=== PATIENT | female | born 1990 | race Caucasian/White ===

== ENCOUNTER 2019-08-09 13:16 | Emergency (ER) | payer MEDICAID ==
[~2019-08-09] VITALS: Ht 162.6 cm; Wt 123.8 kg
[2019-08-09 13:31] VITALS: Ht 162.6 cm; Wt 123.8 kg
[2019-08-09 14:08] LABS: BASOPHIL % 0.3 % (0-2); PLATELET COUNT 204 x10^3mcL (130-400)
[2019-08-09 14:13] LABS: UA SPECIFIC GRAVITY 1.025 (1.005-1.035); microscopic required? YES; urine erythrocyte 3+ (NEGATIVE)
[2019-08-09 14:40] LABS: CALCIUM 8.8 mg/dL (8.5-10.1); CARBON DIOXIDE 27.1 mmol/L (21-32); CHLORIDE SERUM 100 mmol/L (98-107); CREATININE SERUM 0.9 mg/dL (0.6-1.0); GFR1 > 60 mL/min; GLUCOSE SERUM 113 mg/dL (74-106); POTASSIUM SERUM 3.9 mmol/L (3.5-5.1); SODIUM SERUM 136 mmol/L (136-145)
[2019-08-09 14:56] LABS: ALKALINE PHOSPHATASE 54 U/L (46-116); ALT/SGPT 41 U/L (14-59); AST/SGOT 27 U/L (15-37); BILIRUBIN TOTAL 0.3 mg/dL (0.20-1.00)
[2019-08-09 14:57] LABS: TOTAL PROTEIN, SERUM 8.5 g/dL (6.4-8.2)
[2019-08-09 16:24] VITALS: BP 129/86
== END 2019-08-09 16:24 | disposition home or self-care (01) ==
LOC: ED 13:16
PROVIDERS: Emergency Medicine
DX: U07.1 COVID-19 (principal); R10.814 Left lower quadrant abdominal tenderness; R10.2 Pelvic and perineal pain; E66.01 Morbid (severe) obesity due to excess calories
CPT/HCPCS: Q0092; U0003-CS